=== PATIENT | male | born 1970 | race Caucasian/White ===

== ENCOUNTER 2016-12-30 19:00 | Inpatient (IN) | payer MEDICAID ==
[~2016-12-30] VITALS: Ht 157.5 cm; Wt 73.6 kg
[2016-12-30] MEDS ORDERED: PIPER-TAZO 3.375 GM IV (PMX) 100 ML IVPB STA (19:24)
[2016-12-30] MEDS ORDERED: SODIUM CHLORIDE 0.9% 1L BAG IV* STA (19:24)
[2016-12-30] MEDS ORDERED: VANCOMYCIN 1 GM (PMX) 250 ML IVPB ONE (19:30)
[2016-12-30] MEDS ORDERED: ACETAMINOPHEN 325 MG TAB PO ONE (19:30)
--- NOTE | 2016-12-30 19:52 | RADRPT ---
PROCEDURE: US Abdomen Limited . CLINICAL INDICATION: Abdominal pain TECHNIQUE: Multiple real-time images were acquired of the patient's right upper quadrant abdomen u tilizing a high resolution transducer. COMPARISON: None FINDINGS: The liver measures 18.9 cm and demonstrates a coarsened echogenicity. The gallbladder is filled with a moderate amount of bile. A moderate amount of echogenic sludge is identified in the gallbladder. No shadowing stones are seen. The gallbladder wall is not thickened at 2.0 mm. No pericholecystic fluid is noted. The common bile duct measures 5.0 mm in diameter. The pancreas is not well visualiz ed. Antegrade flow is seen in the portal vein. Right kidney measures 10.9 cm. Right kidney demonstrates a normal echogenicity. No hydronephrosis, masses or stones are noted. IMPRESSION: Diffuse fatty infiltration of a mildly enlarged liver. Gallbladder sludge. Pancreas not well visualized. If characterization of this structure is needed repeat exam or CT/MRI is recommended. RPTAT: AA .Aj Lockhart MD, Date Time Electronically viewed and signed by .Aj Lockhart MD, MD on 12/30/2016 19:51 .P/
[2016-12-30 20:08] LABS: ADD UMIC NO; UR ASCORBIC ACID NEGATIVE (NEGATIVE); UR BILIRUBIN (Dip) 2+ mg/dL (NEGATIVE); UR BLOOD (Dip) NEGATIVE (NEGATIVE); UR CLARITY CLEAR (CLEAR); UR COLOR AMBER (YELLOW); UR GLUCOSE (Dip) 3+ mg/dL (NEGATIVE); UR KETONES (Dip) NEGATIVE (NEGATIVE); UR LEUKOCYTE ESTERASE (Dip) NEGATIVE Leu/ul (NEGATIVE); UR NITRITE (Dip) NEGATIVE (NEGATIVE); UR SPECIFIC GRAVITY (Dip) 1.022 (1.003-1.030); UR TOTAL PROTEIN (Dip) NEGATIVE (NEGATIVE); UR UROBILINOGEN (Dip) 2+ mg/dL (NEGATIVE)
[2016-12-30 20:10] LABS: ABNORMAL IP MESSAGE 1; HEMATOCRIT 35.4 % (42.0-52.0); HEMOGLOBIN 13.1 g/dl (14.0-18.0); MEAN CORPUSCULAR HEMOGLOBIN 36.1 pg (29.0-33.0); MEAN CORPUSCULAR VOLUME 97.5 fl (82.0-101.0); MEAN PLATELET VOLUME 11.4 fl (7.4-10.4); PLATELET COUNT 75 10^3/UL (140-415); POSITIVE DIFF @See below; RED BLOOD COUNT 3.63 10^6/ul (4.70-6.10); RED CELL DISTRIBUTION WIDTH 12.7 % (11.5-14.5); WHITE BLOOD COUNT 10.7 10^3/ul (4.8-10.8)
--- NOTE | 2016-12-30 20:10 | RADRPT ---
PROCEDURE: Portable chest x-ray. CLINICAL INDICATION: 48-year-old male. Possible sepsis.. TECHNIQUE: Portable AP view of the chest. COMPARISON: None. FINDINGS: Cardiomediastinal contours are normal. Lungs are clear.. Negative for pleural effusion or pneumothorax.. No acute bony abnormality. IMPRESSION: Negative for evidence of acute chest process. Negative for an infiltrate. RPTAT: HCTS Physician Natalia Date Time Electronically viewed and signed by Ryan George Physician on 12/30/2016 20:10 CS/
[2016-12-30 20:23] LABS: ALANINE AMINOTRANSFERASE 80 IU/L (13-69); ALBUMIN 3.2 g/dl (3.3-4.9); ALBUMIN/GLOBULIN RATIO 0.91; ALKALINE PHOSPHATASE 314 IU/L (42-121); ANION GAP 17 (8-16); ASPARTATE AMINO TRANSFERASE 152 IU/L (15-46); BILIRUBIN,INDIRECT 2.1 mg/dl (0-1.1); BILIRUBIN,TOTAL 9.9 mg/dl (0.2-1.3); BLOOD UREA NITROGEN 8 mg/dl (7-20); CALCIUM 8.2 mg/dl (8.4-10.2); CARBON DIOXIDE 28 mmol/L (21-31); CHLORIDE 91 mmol/L (97-110); CREATININE 0.59 mg/dl (0.61-1.24); GLUCOSE 271 mg/dl (70-220); POTASSIUM 3.5 mmol/L (3.5-5.1); SODIUM 132 mmol/L (135-144); TOTAL PROTEIN 6.7 g/dl (6.1-8.1)
[2016-12-30 20:35] LABS: INR 1.29; PROTIME 16.2 Sec (12.2-14.2); PT RATIO 1.3
[2016-12-30 20:36] LABS: PARTIAL THROMBOPLASTIN TIME 35.1 Sec (25.0-35.0)
[2016-12-30 20:39] LABS: TROPONIN-I < 0.012 ng/ml (0.00-0.12)
[2016-12-30] MEDS ORDERED: ACETAMINOPHEN 325 MG TAB PO PRN ×2 (21:00→23:00)
[2016-12-30] MEDS ORDERED: ONDANSETRON 4 MG INJ IV PRN ×2 (21:00→23:00)
[2016-12-30 21:07] LABS: HAAIG REFLEX REFLEX FILED
[2016-12-30 21:20] LABS: EOSINOPHILS # 0.1 10^3/ul (0.0-0.5); LYMPHOCYTES # 0.9 10^3/ul (0.8-2.9); MONOCYTE # 1.9 10^3/ul (0.3-0.9); MONOCYTES % (M) 18 % (0-11); NEUTROPHIL # 7.7 10^3/ul (1.6-7.5)
[2016-12-30 22:02] LABS: HEPATITIS B CORE ANTIBODY NEGATIVE (NEGATIVE)
--- NOTE | 2016-12-30 22:02 | ERA ---
ER Documentation Chief Complaint Date/Time DATE: 12/30/16 TIME: 21:59 Chief Complaint Epigastric Pain when Burping HPI Patient is a 46-year-old male with no medical problems who presents with midepigastric pain. The patient has had hiccups since Tuesday. The patient cannot sleep. He admits to epigastric pain. The pain comes and goes. He said that he is not having any pain right now. He tried drinking sugar water. He denies cough or urinary symptoms. Upon review of old medical records this is the patient's first visit to the emergency department. He does not currently have a primary doctor. ROS All systems reviewed and are negative except as per history of present illness. Medications Home Meds No Active Prescriptions or Reported Meds Allergies Allergies: Coded Allergies: No Known Allergy (Unverified , 12/30/16) PMhx/Soc Medical and Surgical Hx: pt denies Medical Hx, pt denies Surgical Hx Hx Alcohol Use: Yes Hx Substance Use: No Hx Tobacco Use: No Smoking Status: Never smoker FmHx Family History: No diabetes Physical Exam Vitals Vital Signs Date Time Temp Pulse Resp B/P Pulse Ox O2 Delivery O2 Flow Rate FiO2 12/30/16 21:01 100.0 98 20 153/90 96 Room Air 12/30/16 19:45 Nasal Cannula 12/30/16 19:14 100.6 117 22 162/93 96 Physical Exam Const: Moderate distress Head: Atraumatic Eyes: Scleral icterus ENT: Normal External Ears, Nose and Mouth. Neck: Full range of motion..~ No meningismus. Resp: Clear to auscultation bilaterally Cardio: Regular rate and rhythm, no murmurs Abd: Soft, midepigastric tenderness to palpation Skin: scleral icterus and jaundice Back: No midline or flank tenderness Ext: No cyanosis, or edema Neur: Awake and alert Psych: Normal Mood and Affect Result Diagram: 12/30/16195612/30/161956 Results 24 hrs Laboratory Tests Test 12/30/16 19:51 12/30/16 19:57 Urine Color COLE Urine Clarity CLEAR Urine pH 7.0 Urine Specific [place] 1.022 Urine Ketones NEGATIVEmg/dL Urine Nitrite NEGATIVEmg/dL Urine Bilirubin 2+mg/dL Urine Urobilinogen 2+mg/dL Urine Leukocyte Esterase NEGATIVELeu/ul Urine Hemoglobin NEGATIVEmg/dL Urine Glucose 3+mg/dL Urine Total Protein NEGATIVEmg/dl White Blood Count 10.710^3/ul Red Blood Count 3.6310^6/ul Hemoglobin 13.1g/dl Hematocrit 35.4% Mean Corpuscular Volume 97.5fl Mean Corpuscular Hemoglobin 36.1pg Mean Corpuscular Hemoglobin Concent 37.0g/dl Red Cell Distribution Width 12.7% Platelet Count 7510^3/UL Mean Platelet Volume 11.4fl Neutrophils % % Segmented Neutrophils % (Manual) 72% Band Neutrophils % (Manual) 1% Lymphocytes % % Lymphocytes % (Manual) 8% Monocytes % % Monocytes % (Manual) 18% Eosinophils % % Eosinophils % (Manual) 1.0% Basophils % % Nucleated Red Blood Cells % 0.0/100WBC Neutrophils # 7.710^3/ul Neutrophils # (Manual) 7.710^3/ul Band Neutrophils # 0.110^3/ul Absolute Lymphocytes (Manual) 0.810^3/ul Lymphocytes # 0.910^3/ul Monocytes # 1.910^3/ul Absolute Monocytes (Manual) 1.910^3/ul Eosinophils # 0.110^3/ul Basophils # 10^3/ul Nucleated Red Blood Cells # 10^3/ul Prothrombin Time 16.2Sec Prothrombin Time Ratio 1.3 INR International Normalized Ratio 1.29 Activated Partial Thromboplast Time 35.1Sec Sodium Level 132mmol/L Potassium Level 3.5mmol/L Chloride Level 91mmol/L Carbon Dioxide Level 28mmol/L Anion Gap 17 Blood Urea Nitrogen 8mg/dl Creatinine 0.59mg/dl Glucose Level 271mg/dl Lactic Acid Level 1.2mmol/L Calcium Level 8.2mg/dl Total Bilirubin 9.9mg/dl Direct Bilirubin 7.80mg/dl Indirect Bilirubin 2.1mg/dl Aspartate Amino Transf (AST/SGOT) 152IU/L Alanine Aminotransferase (ALT/SGPT) 80IU/L Alkaline Phosphatase 314IU/L Troponin I < 0.012ng/ml Total Protein 6.7g/dl Albumin 3.2g/dl Globulin 3.50g/dl Albumin/Globulin Ratio 0.91 Lipase 1221U/L Hepatitis B Surface Antigen Pending Hepatitis B Core Total Antibody Pending Hepatitis C Antibody Pending Current Medications Medications (Trade) Dose Ordered Sig/Gary Route PRN Reason Start Time Stop Time Status Last Admin Dose Admin Sodium Chloride 2280 ml 2,280 ml BOLUS OVER 2 HOURS STAT IV* 12/30/16 19:24 12/30/16 19:26 DC 12/30/16 19:41 Vancomycin HCl 250 ml @ 125 mls/hr ONCE ONCE IVPB 12/30/16 19:30 12/30/16 21:29 DC 12/30/16 21:01 Piperacillin Sod/ Tazobactam Sod (Zosyn 3.375gm/ 100 ml (Pmx)) 100 ml @ 200 mls/hr ONCE STAT IVPB 12/30/16 19:24 12/30/16 19:53 DC 12/30/16 19:41 Acetaminophen (Tylenol Tab) 650 mg ONCE ONCE PO 12/30/16 19:30 12/30/16 19:31 DC 12/30/16 19:41 Ondansetron HCl (Zofran Inj) 4 mg BRIDGE ORDER PRN IV NAUSEA AND/OR VOMITING 12/30/16 21:00 12/31/16 20:59 Acetaminophen (Tylenol Tab) 650 mg ER BRIDGE PRN PO MILD PAIN/FEVER 12/30/16 21:00 12/31/16 20:59 Procedures/MDM EKG read by me: Rate/Rhythm: Sinus tachycardia rate of 123 Intervals: Normal Impression: Sinus tachycardia without ischemia PROCEDURE: US Abdomen Limited . CLINICAL INDICATION: Abdominal pain TECHNIQUE: Multiple real-time images were acquired of the patient's right upper quadrant abdomen utilizing a high resolution transducer. COMPARISON: None FINDINGS: The liver measures 18.9 cm and demonstrates a coarsened echogenicity. The gallbladder is filled with a moderate amount of bile. A moderate amount of echogenic sludge is identified in the gallbladder. No shadowing stones are seen. The gallbladder wall is not thickened at 2.0 mm. No pericholecystic fluid is noted. The common bile duct measures 5.0 mm in diameter. The pancreas is not well visualized. Antegrade flow is seen in the portal vein. Right kidney measures 10.9 cm. Right kidney demonstrates a normal echogenicity. No hydronephrosis, masses or stones are noted. IMPRESSION: Diffuse fatty infiltration of a mildly enlarged liver. Gallbladder sludge. Pancreas not well visualized. If characterization of this structure is needed repeat exam or CT/MRI is recommended. RPTAT: AA .Aj Lockhart MD, MD Date Time Electronically viewed and signed by .Aj Lockhart MD, MD on 12/30/2016 19:51 Chest x-ray negative per radiology. Admit MDM: Patient's infectious symptoms have not stabilized and the patient is at risk of rapid decompensation. The patient will be admitted for careful hydration, antibiotic therapy, and infectious source control. Severe Sepsis criteria: Infectious source: Hepatitis and pancreatitis End organ damage indicated by: Bilirubin greater than 2 Sepsis Management: Time of recognition of sepsis: Upon arrival Within 3 hours of recognition: Blood cultures x 2 before broad-spectrum antibiotics: Yes 30 ml/kg NS bolus Completed Initial lactate 1.2 Repeat lactate pending Time of recognition of septic shock: No septic shock Septic Shock Assessment: Any lactic acid > 4.0 No Persistent hypotension (SBP < 90 or 40 mmHg drop, MAP < 65) despite 30 mL/kg IV fluid bolus No Volume Re-assessment for Septic Shock (post 30 ml/kg bolus): No septic shock at this time Persistent Hypotension Treatment: Comfort care No Central line Not Required Vasopressor started Not required I considered further perfusion assessment with CVP measurement, SCVO2, bedside ultrasound volume assessment, passive leg raise, trial of further fluid bolus. And proceeded with 30 ml/kg fluid bolus of NSS, broad spectrum antibiotics, and admission. Hepatitis panel is pending at this time. Accepting Care Team Current data and ongoing care discussed. Admitting Physician: Dr. Raman from the panel team Clerk Television Production(s): None Outstanding Data: Culture results and repeat lactic acid Critical Care: Critical care time 35 minutes excluding all billable procedures Emergent fluid management while maintaining close respiratory support. Provision of immediate and broad-spectrum antibiotic therapy. Simultaneous assessment for possible sources in order to direct targeted therapy. Consideration for invasive and chemical support to prevent cardiopulmonary collapse. Departure Diagnosis: Primary Impression: Hepatitis Additional Impressions: Pancreatitis Qualified Code: K85.90 - Acute pancreatitis, unspecified complication status, unspecified pancreatitis type Severe sepsis Abdominal pain Qualified Code: R10.13 - Epigastric pain Condition: Serious FELIPE GALLARDO MD Dec 30, 2016 22:02
[2016-12-30] MEDS ORDERED: LORAZEPAM 2 MG INJ IV PRN (23:00)
[2016-12-30] MEDS ORDERED: morphine 2 MG INJ IV PRN (23:00)
[2016-12-30] MEDS ORDERED: NACL 0.9% 3 ML SYG IV SCH (23:00)
--- NOTE | 2016-12-30 23:17 | RADRPT ---
PROCEDURE: CT ABDOMEN AND PELVIS WITHOUT CONTRAST: CLINICAL INDICATION: 46-year of age, male, epigastric pain COMPARISON: Ultrasound from earlier the same day TECHNIQUE: CT of the abdomen, and pelvis was performed without intravenous contrast. Oral contrast w as not administered prior to the examination. Coronal and sagittal reformatted images were obtained from the axial source images. Images were revi ewed on a high-resolution PACS workstation. Dose information: Based on a 32 cm phantom, the estimated radiation dose (CTDI vol mGy) for each ser ies in this exam is 11.8. The estimated cumulative dose (DLP mGy-cm) is 685. FINDINGS: In the absence of intravenous contrast, the study constitutes a limited assessment of the solid orga ns and vessels. LUNG BASES: Normal. ABDOMEN/PELVIS: Liver: Marked hepatic steatosis and moderate hepatomegaly measuring 21 cm in length. Scattered liver granulomas. Gallbladder: Moderately distended. Bile ducts: No intrahepatic or extrahepatic biliary duct dilatation. Spleen: Normal size. Trace perisplenic fluid. Pancreas: Enlarged with extensive peripancreatic edema and fluid extending into the small bowel mese ntery and gastrohepatic ligament. Adrenal glands: Normal. Kidneys and ureters: Punctate nonobstructing calculus right kidney. Negative for ureteral calculi o r hydronephrosis. Aorta and IVC: Normal noncontrast appearance. Lymph nodes: Normal. Gastrointestinal tract: Suspected wall thickening involving proximal jejunum in the left upper quadr ant adjacent to the inflamed pancreas. Bowel loops are decompressed. Appendix: Normal Bladder: Normal. Pelvic Organs: Normal. Peritoneal cavity: Small volume free intraperitoneal fluid. Negative for free intraperitoneal air. Abdominal wall: Indirect left inguinal hernia containing peritoneal fluid. There is a calcified lef t scrotal yissel. BONES: Musculoskeletal: Multilevel degenerative changes in spine with curvature of lumbar spine convex righ t. Bilateral spondylolysis at L4 with grade 1 anterolisthesis at L4-5. No suspicious bone lesions. IMPRESSION: Acute pancreatitis with enlarged edematous pancreas with acute peripancreatic collections forming in the gastrohepatic ligament and small bowel mesentery. Without intravenous contrast, the study does not evaluate for pancreatic necrosis and also does not evaluate the patency of the vasculature. Suspected wall thickening of proximal loops of jejunum is likely reactive from adjacent pancreatitis . Marked hepatic steatosis and moderate hepatomegaly. Small volume ascites. RPTAT: HCTS Ryan George, Physician Date Time Electronically viewed and signed by Ryan George, Physician on 12/30/2016 23:17 CS/
--- NOTE | 2016-12-30 23:32 | HP ---
Date/Time of Note Date/Time of Note DATE: 12/30/16 TIME: 23:31 Assessment/Plan VTE Prophylaxis VTE Prophylaxis Intervention: SCD's Assessment/Plan Chief Complaint/Hosp Course This is a 46-year-old male being admitted to the [facility] floor for: #1 Sepsis: Patient did present with fever tachycardia and tachypnea and acute pancreatitis. At the current time will provide patient with IV fluid hydration. Keep patient n.p.o. She did receive an initial dose of antibiotics in the emergency department. CAT scan of the abdomen showed: Acute pancreatitis with enlarged edematous pancreas with acute peripancreatic collections forming in the gastrohepatic ligament and small bowel mesentery. Without intravenous contrast, the study does not evaluate for pancreatic necrosis and also does not evaluate the patency of the vasculature. I will order a CAT scan with contrast to further evaluate. Will treat for any infections accordingly with antibiotics. Will obtain urine and blood cultures. #2 acute pancreatitis: Likely secondary to heavy alcohol use. Will obtain blood alcohol level. Keep the patient n.p.o., IV fluid aggressive hydration. IV narcotic for pain control. Will obtain a CAT scan of the ultrasound with contrast to further assess for any possible necrosis. #3 Painless jaundice: Total bilirubin 9.9 with direct bilirubin of 7.8. Transaminitis. There are no signs of any gallstones on ultrasound. The gallbladder wall appears normal size. At the current time this likely appears to be secondary to patient's heavy alcohol use however this also could reflect possible acute cholangitis though there is no elevation in the white count. So the current time I will start the patient on Zosyn IV. Will obtain an MRCP. Will also obtain a GI consult. Will check hepatitis panel, additional liver studies. #4 alcohol abuse: Patient is a heavy daily drinker. He was counseled on alcohol cessation. At the current time will check blood alcohol level. Will put the patient on Ativan as needed, scheduled Librium taper. Keep the patient n.p.o. Monitor for signs of alcohol withdrawal. #5 elevated blood glucose: We will check a hemoglobin A1c. We will keep the patient on insulin sliding scale. #6 elevated blood pressure: Continue to monitor blood pressures, patient may have undiagnosed hypertension. Start medications as indicated clinically. #7 DVT and GI prophylaxis: SCDs, acid german Further treatment strategy will be implemented as per the clinical course Problems: HPI/ROS Admit Date/Time Admit Date/Time Hx of Present Illness Chief complaint: Midepigastric pain This is a 46-year-old male with no medical problems who presents with midepigastric pain. The patient has had hiccups since Tuesday. The patient cannot sleep. He admits to epigastric pain. The pain comes and goes. He said that he is not having any pain right now. He denies cough or urinary symptoms. Patient states that he is a daily heavy alcohol drinker. He states that he noticed his eyes were yellow today. Denies any swelling in his legs or distention his abdomen. He does not have a primary care doctor. He states that he does have hiccups but he denies any symptoms of reflux such as heartburn. allergies: nkda meds: none ROS Const: As per HPI Eyes : As per HPI ENT: No pain, sore throat, congestion, congestion, dysphagia or discharge Respiratory: No shortness of breath, cough, sputum, wheezing, or pleuritic pain Cardiovascular: No chest pain, palpitation, PND, or edema GI : As per HPI Genitourinary: No dysuria, hematuria, flank pain , discharge or CVA tenderness Musculoskeletal: No joint pain, back pain, neck pain, restricted range of motion in neck or joints Skin: No rash, bruising or hives Neuro: No headache, dizziness, syncope, seizure, focal weakness Endocrine: No polyuria, polydipsia, temperature intolerance Psych: No hallucination, depression, anxiety or suicidal ideation PMH/Family/Social Past Medical History anxiety Past Surgical History Past Surgical Hx: no surgical history Family History Significant Family History: no pertinent family hx Social History Alcohol Use: heavy Smoking Status: Never smoker Drug Use: none Exam/Review of Systems Vital Signs Vitals Vital Signs Date Time Temp Pulse Resp B/P Pulse Ox O2 Delivery O2 Flow Rate FiO2 12/30/16 22:50 99.8 98 18 143/86 98 Nasal Cannula 2.0 Exam Exam General: Patient is lying in bed in no acute distress HEENT: Scleral icterus bilaterally, atraumatic, normocephalic. The pupils are equal, round and reactive. Extraocular motor are intact Neck: Supple with full range of motion. No rigidity or meningismus Chest: Nontender Lungs: Clear to auscultation bilaterally no crackles rales or wheezing Heart: Normal S1-S2, Regular rhythm and rate. No murmur, S3, or S4 Abdomen: Soft, nontender, nondistended, no fluid wave, no overt signs of ascites. Hepatomegaly on examination Extremities: Normal to inspection, no edema no cyanosis Neurologic: Normal mental status, speech normal, cranial nerves II through XII are intact, motor and sensory are intact, no focal weakness, no signs of DTs. Additional Comments PROCEDURE: CT ABDOMEN AND PELVIS WITHOUT CONTRAST: CLINICAL INDICATION: 46-year of age, male, epigastric pain COMPARISON: Ultrasound from earlier the same day TECHNIQUE: CT of the abdomen, and pelvis was performed without intravenous contrast. Oral contrast was not administered prior to the examination. Coronal and sagittal reformatted images were obtained from the axial source images. Images were reviewed on a high-resolution PACS workstation. Dose information: Based on a 32 cm phantom, the estimated radiation dose (CTDI vol mGy) for each series in this exam is 11.8. The estimated cumulative dose ( DLP mGy-cm) is 685. FINDINGS: In the absence of intravenous contrast, the study constitutes a limited assessment of the solid organs and vessels. LUNG BASES: Normal. ABDOMEN/PELVIS: Liver: Marked hepatic steatosis and moderate hepatomegaly measuring 21 cm in length. Scattered liver granulomas. Gallbladder: Moderately distended. Bile ducts: No intrahepatic or extrahepatic biliary duct dilatation. Spleen: Normal size. Trace perisplenic fluid. Pancreas: Enlarged with extensive peripancreatic edema and fluid extending into the small bowel mesentery and gastrohepatic ligament. Adrenal glands: Normal. Kidneys and ureters: Punctate nonobstructing calculus right kidney. Negative for ureteral calculi or hydronephrosis. Aorta and IVC: Normal noncontrast appearance. Lymph nodes: Normal. Gastrointestinal tract: Suspected wall thickening involving proximal jejunum in the left upper quadrant adjacent to the inflamed pancreas. Bowel loops are decompressed. Appendix: Normal Bladder: Normal. Pelvic Organs: Normal. Peritoneal cavity: Small volume free intraperitoneal fluid. Negative for free intraperitoneal air. Abdominal wall: Indirect left inguinal hernia containing peritoneal fluid. There is a calcified left scrotal yissel. BONES: Musculoskeletal: Multilevel degenerative changes in spine with curvature of lumbar spine convex right. Bilateral spondylolysis at L4 with grade 1 anterolisthesis at L4-5. No suspicious bone lesions. IMPRESSION: Acute pancreatitis with enlarged edematous pancreas with acute peripancreatic collections forming in the gastrohepatic ligament and small bowel mesentery. Without intravenous contrast, the study does not evaluate for pancreatic necrosis and also does not evaluate the patency of the vasculature. Suspected wall thickening of proximal loops of jejunum is likely reactive from adjacent pancreatitis. Marked hepatic steatosis and moderate hepatomegaly. Small volume ascites. RPTAT: HCTS Physician Natalia Date Time Electronically viewed and signed by Ryan George Physician on 12/30/2016 23: 17 CS/ CC: FELIPE GALLARDO MD PROCEDURE: US Abdomen Limited . CLINICAL INDICATION: Abdominal pain TECHNIQUE: Multiple real-time images were acquired of the patient's right upper quadrant abdomen utilizing a high resolution transducer. COMPARISON: None FINDINGS: The liver measures 18.9 cm and demonstrates a coarsened echogenicity. The gallbladder is filled with a moderate amount of bile. A moderate amount of echogenic sludge is identified in the gallbladder. No shadowing stones are seen. The gallbladder wall is not thickened at 2.0 mm. No pericholecystic fluid is noted. The common bile duct measures 5.0 mm in diameter. The pancreas is not well visualized. Antegrade flow is seen in the portal vein. Right kidney measures 10.9 cm. Right kidney demonstrates a normal echogenicity. No hydronephrosis, masses or stones are noted. IMPRESSION: Diffuse fatty infiltration of a mildly enlarged liver. Gallbladder sludge. Pancreas not well visualized. If characterization of this structure is needed repeat exam or CT/MRI is recommended. RPTAT: AA .Aj Lockhart MD, Date Time Electronically viewed and signed by .Aj Lockhart MD, MD on 12/30/2016 19:51 .P/ PROCEDURE: Portable chest x-ray. CLINICAL INDICATION: 48-year-old male. Possible sepsis.. TECHNIQUE: Portable AP view of the chest. COMPARISON: None. FINDINGS: Cardiomediastinal contours are normal. Lungs are clear.. Negative for pleural effusion or pneumothorax.. No acute bony abnormality. IMPRESSION: Negative for evidence of acute chest process. Negative for an infiltrate. RPTAT: HCTS Physician Natalia Date Time Electronically viewed and signed by Ryan George Physician on 12/30/2016 20: 10 CS/ CC: FELIPE GALLARDO MD Labs Result Diagram: 12/30/16195612/30/161956 Medications Medications Current Medications Sodium Chloride (NS) 1,000 ml @ 150 mls/hr Q6H40M IV ; Start 12/30/16 at 22:54 Ondansetron HCl (Zofran Inj) 4 mg Q6H PRN IV NAUSEA AND/OR VOMITING; Start 03/08 at 23:00 Acetaminophen (Tylenol Tab) 650 mg Q6H PRN PO PAIN LEVEL 1-3 OR FEVER; Start at 23:00 Morphine Sulfate (morphine) 2 mg Q4H PRN IV SEVERE PAIN LEVEL 7-10; Start 12/30 at 23:00 Pantoprazole (Protonix Iv) 40 mg DAILY@06 IV ; Start 12/31/16 at 06:00 Lorazepam (Ativan) 1 mg Q2 PRN IV AGITATION/ANXIETY; Start 12/30/16 at 23:00 Chlordiazepoxide (Librium) 50 mg TID PO ; Start 12/30/16 at 23:00; Stop at 22:59 Chlordiazepoxide (Librium) 25 mg QID PO ; Start 01/01/17 at 09:00; Stop at 22:59 Chlordiazepoxide (Librium) 25 mg TID PO ; Start 01/02/17 at 09:00; Stop at 22:59 LESTER PEARSON Dec 30, 2016 23:32
[2016-12-30] MEDS ORDERED: IOHEXOL 300MG/ML 150 ML BTL ONE (23:56)
[2016-12-30] MEDS ORDERED: SOD CHLORIDE 0.9% 100 ML ONE (23:56)
[2016-12-31] MEDS: SOD CHLORIDE 0.9% 1,000 ML IV SCH ×4 (00:38→18:54)
--- NOTE | 2016-12-31 00:44 | RADRPT ---
PROCEDURE: CT Abdomen and Pelvis with IV contrast. CLINICAL INDICATION: Pancreatitis. Pain. TECHNIQUE: CT scan of the abdomen and pelvis was performed on a multidetector slice CT scanner. 90 cc of Omnipaque 300 intravenous contrast material was utilized. Sagittal and coronal reformatted im ages were obtained from the axial source images. Images were reviewed on a high-resolution PACS work station. Exam CTDlvol = 10 mGy and DLP = 572 Gy-cm. One of the following 3 dose reduction techniques were used: Automated exposure control; adjustment of the mA and/or kV according to patient size; or use of iterative reconstruction technique. COMPARISON: Non IV contrast CT 12/30/2016. FINDINGS: There is redemonstrated edematous pancreas with diffuse peripancreatic fluid and infiltration, consi stent with acute pancreatitis. There is no gross destruction of the pancreatic parenchyma to sugges t necrosis. There is no pseudocyst or phlegmon. The adjacent arterial and venous structures appear patent without evidence for thrombosis. There is thickening of the adjacent gastric antrum and duo denum consistent with reactive changes. There is mild free fluid in the abdomen and pelvis, unchang ed. The liver is enlarged at 21.5 cm length and diffusely hypodense/fatty.. No intrahepatic lesions are identified. The gallbladder is normal in appearance. There is no definite biliary ductal dilation. The spleen is unremarkable.. There are no adrenal masses. The aorta is normal caliber. There is no obstruction or ileus. There is mild distal transverse and left colon wall thickening. Th ere is a fluid-containing left inguinal hernia, unchanged. The appendix is visualized and normal in size and appearance without evidence for appendicitis. There is no evidence for diverticulitis. There is a punctate nonobstructing calcification lower pole right kidney. Kidneys are otherwise nor mal in appearance without hydronephrosis, mass or obstructing calculus. There is no perinephric letitia ection. Ureters are of normal caliber and without evidence for an obstructing calculus The urinary b ladder is normal in appearance.. Limited evaluation lung bases is unremarkable. There are degenerative changes of the lower lumbar spine. There is 4 mm grade 1 anterior spondyloli sthesis of L4 on L5. IMPRESSION: 1. Redemonstrated acute pancreatitis with peripancreatic fluid and infiltration. No definite pancr eatic destruction to suggest necrosis. No armani pancreatic pseudocyst or phlegmon. 2. Thickening of the gastric antrum, duodenum as well as the distal transverse and left colon, like ly reactive changes. 3. Unchanged mild ascites. 4. Enlarged fatty liver. 5. Otherwise no change. RPTAT: [facility]VK .David Mejía MD, Date Time Electronically viewed and signed by .David Mejía MD, on 12/31/2016 00:44 .K/
[2016-12-31] MEDS: CHLORDIAZEPOXIDE 25 MG CAP PO SCH ×4 (00:52→21:07)
[2016-12-31] MEDS ORDERED: DEXTROSE 50% 50 ML SYRINGE IV PRN ×2 (01:00)
[2016-12-31] MEDS ORDERED: GLUCOSE GEL 15 GRAM TUBE BUCCAL PRN (01:00)
[2016-12-31] MEDS ORDERED: GLUCAGON 1 MG INJ IM PRN (01:00)
[2016-12-31] MEDS ORDERED: GLUCOSE GEL 15 GRAM TUBE PO PRN ×2 (01:00)
[2016-12-31] MEDS: ACCU-CHEK XX SCH (02:00)
[2016-12-31] MEDS: INSULIN ASPART [NOVOLOG] 3 ML PEN SC SCH ×6 (02:27→21:15)
[2016-12-31 04:30] VITALS: TEMP 99.8
[2016-12-31 05:27] VITALS: Ht 157.5 cm; Wt 73.6 kg
[2016-12-31 05:38] VITALS: BP 153/82; PULSE 90; RESP 18
[2016-12-31] MEDS ORDERED: PANTOPRAZOLE 40 MG INJ IV SCH (06:00)
[2016-12-31] MEDS: PIPER-TAZO 3.375 GM IV (PMX) 100 ML IVPB SCH ×4 (06:03→23:15)
[2016-12-31 06:39] LABS: ABNORMAL IP MESSAGE 1; BASOPHILS % 0.4 % (0.0-2.0); EOSINOPHILS # 0.2 10^3/ul (0.0-0.5); EOSINOPHILS % 2.2 % (0.0-7.0); HEMATOCRIT 36.6 % (42.0-52.0); HEMOGLOBIN 12.7 g/dl (14.0-18.0); LYMPHOCYTES # 1.1 10^3/ul (0.8-2.9); LYMPHOCYTES % 12.3 % (15.0-51.0); MEAN CORPUSCULAR HEMOGLOBIN 34.8 pg (29.0-33.0); MEAN CORPUSCULAR HGB CONC 34.7 g/dl (32.0-37.0); MEAN CORPUSCULAR VOLUME 100.3 fl (82.0-101.0); MEAN PLATELET VOLUME 11.2 fl (7.4-10.4); MONOCYTE # 2.8 10^3/ul (0.3-0.9); MONOCYTES % 30.3 % (0.0-11.0); NEUTROPHIL # 4.9 10^3/ul (1.6-7.5); NEUTROPHILS % 53.4 % (39.0-77.0); PLATELET COUNT 74 10^3/UL (140-415); POSITIVE DIFF @See below; RED BLOOD COUNT 3.65 10^6/ul (4.70-6.10); RED CELL DISTRIBUTION WIDTH 13.1 % (11.5-14.5); WHITE BLOOD COUNT 9.2 10^3/ul (4.8-10.8)
[2016-12-31 07:11] LABS: ALBUMIN 2.7 g/dl (3.3-4.9); ALBUMIN/GLOBULIN RATIO 0.72; BILIRUBIN,DIRECT 6.5 mg/dl (0.00-0.20); BILIRUBIN,INDIRECT 1.8 mg/dl (0-1.1); BILIRUBIN,TOTAL 8.3 mg/dl (0.2-1.3); CALCIUM 7.6 mg/dl (8.4-10.2); CHOL/HDL RATIO 10.7 RATIO; CREATININE 0.55 mg/dl (0.61-1.24); MAGNESIUM 1.8 mg/dl (1.7-2.5); POTASSIUM 3.3 mmol/L (3.5-5.1); TOTAL PROTEIN 6.4 g/dl (6.1-8.1)
[2016-12-31 07:40] LABS: THYROID STIMULATING HORMONE 1.11 MIU/L (0.465-4.680)
--- NOTE | 2016-12-31 09:34 | PN ---
Date/Time of Note Date/Time of Note DATE: 12/31/16 TIME: 09:26 Assessment/Plan VTE Prophylaxis VTE Prophylaxis Intervention: heparin Assessment/Plan Chief Complaint/Hosp Course 46 yo male with etoh use disorder who presents with hepatitis and pancreatitis Hepatitis and pancreatitis - Almost certainly alcohol induced by history - No evidence of gall stone on imaging, no colic - Continue aggressive hydration for pancreatitis - Will check acute hepatitis labs and trend LFTs - DF is 26, does not meet criteria for steroids Fever I suspect is 2/2 inflammation rather than bacterial infection - Will dc abx if cultures remain negative by tomorrow Thrombocytopenia I suspect is 2/2 alcohol BM suppression, no evidence of cirrhosis/splenomegaly/portal hypertension on imaging DMII: - As evidenced by A1C 10 - Will start basal/bolus insulin Hypokalemia: - Replete as needed Etoh use disorder: - Cessation counseled/advised - Monitor for s/s of withdrawal. Benzos PRN Discharge to self care when stable Problems: Subjective 24 Hr Interval Summary Free Text/Dictation Pt describes daily heavy etoh consumption for years until this past weekend when abdominal symptoms and jaundice began No previous history of hepatitis, pancreatitis or complications of alcohol Feels comfortable now, wants to eat. Most bothersome symptom is hiccups Exam/Review of Systems Vital Signs Vitals Vital Signs Date Time Temp Pulse Resp B/P Pulse Ox O2 Delivery O2 Flow Rate FiO2 12/31/16 05:38 99.3 90 18 153/82 96 Room Air 12/31/16 04:30 2.0 12/31/16 03:00 28 Intake and Output 12/30/16 12/30/16 12/31/16 15:00 23:00 07:00 Intake Total 2630 ml Output Total 4000 ml Balance 2630 ml -4000 ml Exam Jaundiced Comfortable appearing no signs of etoh w/d Normal mentation, no signs of HE Tachy, regular Abdomen soft, nt, nd, no guarding or rebound No ext edema Labs notable for down trending hyperbilirubinemia, INR 1.3 Tranaminitis 2:1 ratio Thromobcytopenia Results Result Diagram: 12/31/16 0601 12/31/16 06 Results 24 hrs Laboratory Tests Test 12/30/16 19:51 12/30/16 19:57 12/30/16 23:18 12/31/16 02:00 Urine Color COLE Urine Clarity CLEAR Urine pH 7.0 Urine Specific [place] 1.022 Urine Ketones NEGATIVE Urine Nitrite NEGATIVE Urine Bilirubin 2+ H Urine Urobilinogen 2+ H Urine Leukocyte Esterase NEGATIVE Urine Hemoglobin NEGATIVE Urine Glucose 3+ H Urine Total Protein NEGATIVE White Blood Count 10.7 Red Blood Count 3.63 L Hemoglobin 13.1 L Hematocrit 35.4 L Mean Corpuscular Volume 97.5 Mean Corpuscular Hemoglobin 36.1 H Mean Corpuscular Hemoglobin Concent 37.0 Red Cell Distribution Width 12.7 Platelet Count 75 L Mean Platelet Volume 11.4 H Neutrophils % Segmented Neutrophils % (Manual) 72 Band Neutrophils % (Manual) 1 Lymphocytes % Lymphocytes % (Manual) 8 L Monocytes % Monocytes % (Manual) 18 H Eosinophils % Eosinophils % (Manual) 1.0 Basophils % Nucleated Red Blood Cells % 0.0 Neutrophils # 7.7 H Neutrophils # (Manual) 7.7 H Band Neutrophils # 0.1 Absolute Lymphocytes (Manual) 0.8 Lymphocytes # 0.9 Monocytes # 1.9 H Absolute Monocytes (Manual) 1.9 H Eosinophils # 0.1 Basophils # Nucleated Red Blood Cells # Prothrombin Time 16.2 H Prothrombin Time Ratio 1.3 INR International Normalized Ratio 1.29 Activated Partial Thromboplast Time 35.1 H Sodium Level 132 L Potassium Level 3.5 Chloride Level 91 L Carbon Dioxide Level 28 Anion Gap 17 H Blood Urea Nitrogen 8 Creatinine 0.59 L Glucose Level 271 H Lactic Acid Level 1.2 1.0 0.9 Calcium Level 8.2 L Total Bilirubin 9.9 H Direct Bilirubin 7.80 H Indirect Bilirubin 2.1 H Aspartate Amino Transf (AST/SGOT) 152 H Alanine Aminotransferase (ALT/SGPT) 80 H Alkaline Phosphatase 314 H Troponin I < 0.012 Total Protein 6.7 Albumin 3.2 L Globulin 3.50 H Albumin/Globulin Ratio 0.91 Lipase 1221 H Hepatitis B Surface Antigen NEGATIVE Hepatitis B Core Total Antibody NEGATIVE Hepatitis C Antibody NEGATIVE Ethyl Alcohol Level < 10.0 Test 12/31/16 02:09 12/31/16 05:55 12/31/16 06:01 Bedside Glucose 182 163 White Blood Count 9.2 Red Blood Count 3.65 L Hemoglobin 12.7 L Hematocrit 36.6 L Mean Corpuscular Volume 100.3 Mean Corpuscular Hemoglobin 34.8 H Mean Corpuscular Hemoglobin Concent 34.7 Red Cell Distribution Width 13.1 Platelet Count 74 L Mean Platelet Volume 11.2 H Neutrophils % 53.4 Lymphocytes % 12.3 L Monocytes % 30.3 H Eosinophils % 2.2 Basophils % 0.4 Nucleated Red Blood Cells % 0.0 Neutrophils # 4.9 Lymphocytes # 1.1 Monocytes # 2.8 H Eosinophils # 0.2 Basophils # 0.0 Nucleated Red Blood Cells # 0.0 Sodium Level 138 Potassium Level 3.3 L Chloride Level 96 L Carbon Dioxide Level 29 Anion Gap 16 Blood Urea Nitrogen 5 L Creatinine 0.55 L Glucose Level 155 # Hemoglobin A1c 10.0 H Calcium Level 7.6 L Magnesium Level 1.8 Total Bilirubin 8.3 H Direct Bilirubin 6.50 H Indirect Bilirubin 1.8 H Aspartate Amino Transf (AST/SGOT) 138 H Alanine Aminotransferase (ALT/SGPT) 72 H Alkaline Phosphatase 267 H Total Protein 6.4 Albumin 2.7 L Globulin 3.70 H Albumin/Globulin Ratio 0.72 Triglycerides Level 231 H Cholesterol Level 140 LDL Cholesterol, Calculated 81 HDL Cholesterol 13 L Cholesterol/HDL Ratio 10.7 Thyroid Stimulating Hormone (TSH) 1.110 Medications Medications Current Medications Sodium Chloride (NS) 1,000 ml @ 150 mls/hr Q6H40M IV Last administered on 12/31 05:58; Admin Dose 150 MLS/HR; Start 12/30/16 at 22:54 Ondansetron HCl (Zofran Inj) 4 mg Q6H PRN IV NAUSEA AND/OR VOMITING; Start 03/08 at 23:00 Acetaminophen (Tylenol Tab) 650 mg Q6H PRN PO PAIN LEVEL 1-3 OR FEVER; Start at 23:00 Morphine Sulfate (morphine) 2 mg Q4H PRN IV SEVERE PAIN LEVEL 7-10; Start 12/30 at 23:00 Lorazepam (Ativan) 1 mg Q2 PRN IV AGITATION/ANXIETY; Start 12/30/16 at 23:00 Chlordiazepoxide (Librium) 50 mg TID PO Last administered on 12/31/16 00:52; Admin Dose 50 MG; Start 12/30/16 at 23:00; Stop 12/31/16 at 22:59 Chlordiazepoxide (Librium) 25 mg QID PO ; Start 01/01/17 at 09:00; Stop at 22:59 Chlordiazepoxide (Librium) 25 mg TID PO ; Start 01/02/17 at 09:00; Stop at 22:59 Diagnostic Test (Pha) (Accu-Chek) 1 ea 02 XX ; Start 12/31/16 at 02:00 Insulin Aspart (Novolog Insulin Pen) NOVOLOG *MILD* ALGORI... Q4 SC Last administered on 12/31/16 06:00; Admin Dose 1 UNIT; Start 12/31/16 at 01:00 Miscellaneous Information 1 ea NOTE XX ; Start 12/31/16 at 01:00 Glucose (Glutose) 15 gm Q15M PRN PO DECREASED GLUCOSE; Start 12/31/16 at 01:00 Glucose (Glutose) 22.5 gm Q15M PRN PO DECREASED GLUCOSE; Start 12/31/16 at 01: 00 Dextrose (D50w Syringe) 25 ml Q15M PRN IV DECREASED GLUCOSE; Start 12/31/16 at 01:00 Dextrose (D50w Syringe) 50 ml Q15M PRN IV DECREASED GLUCOSE; Start 12/31/16 at 01:00 Glucagon (Glucagen) 1 mg Q15M PRN IM DECREASED GLUCOSE; Start 12/31/16 at 01:00 Glucose 15 gm 15 gm Q15M PRN BUCCAL DECREASED GLUCOSE; Start 12/31/16 at 01:00 Piperacillin Sod/ Tazobactam Sod (Zosyn 3.375gm/ 100 ml (Pmx)) 100 ml @ 200 mls /hr Q6 IVPB Last administered on 12/31/16t 06:03; Admin Dose 200 MLS/HR; Start 12/31/16 at 06:00 Famotidine (Pepcid Iv) 20 mg BID IV ; Start 01/01/17 at 09:00 CHAPIS MOODY MD Dec 31, 2016 09:34
[2016-12-31] MEDS ORDERED: POTASSIUM CHLORIDE (SR) 20 MEQ TAB PO STA ×2 (09:35→15:47)
--- NOTE | 2016-12-31 10:57 | PN ---
Date/Time of Note Date/Time of Note DATE: 12/31/16 TIME: 10:39 Assessment/Plan VTE Prophylaxis VTE Prophylaxis Intervention: ambulation Assessment/Plan Assessment/Plan Assessment * Jaundice LIkely alcoholic in origin vs infectious vs others * Alcoholism * Elevated lipase Acute Pancreatitis CT scan . Redemonstrated acute pancreatitis with peripancreatic fluid and infiltration. No definite pancreatic destruction to suggest necrosis. No armani pancreatic pseudocyst or phlegmon. Thickening of the gastric antrum, duodenum as well as the distal transverse and left colon, likely reactive changes. Unchanged mild ascites. . Enlarged fatty liver. Plan * Continue present management * Will await hepatitis profile results * MRCP results * Alcohol cessation is paramount * Case discussed with DR Mckeon * further orders will depend on clinical course Subjective 24 Hr Interval Summary Free Text/Dictation 46 year old male heavy alcoholic drinker presented to emergency room complaining of hiccups and icteric sclera.Present condition apparently started as heavy drinking last week followed by vague epigastric pain,non radiating, occurring intermittently with associated hiccups.Patient denies any nausea, vomiting ,hematemesis,hematochezia,fever ,melena nor shortness of breath..Few days prior to consult yellowing of sclera and skin prompted consult.Laboratory results revealed hyperbilirubinemia [place] bilirubin 8.3,AST 138,ALT 72,alkaline phosphatase 267,PT 16.2,INR 1.21,hemoglobin 13.2,WBC 10.7. Lipase 1221 CT scan abdomen 1. Remonstrated acute pancreatitis with peripancreatic fluid and infiltration. No definite pancreatic destruction to suggest necrosis. No armani pancreatic pseudocyst or phlegmon. 2. Thickening of the gastric antrum, duodenum as well as the distal transverse and left colon, likely reactive changes. 3. Unchanged mild ascites. 4. Enlarged fatty liver. 5. Otherwise no change. Constitutional: no complaints Eyes: no complaints, other (icteric) ENT: no complaints, other Respiratory: no complaints Gastrointestinal: decreased appetite, pain Genitourinary: no complaints Musculoskeletal: no complaints Skin: no complaints Neurologic: no complaints Endocrine: no complaints Lymphatic: no complaints Exam/Review of Systems Vital Signs Vitals Vital Signs Date Time Temp Pulse Resp B/P Pulse Ox O2 Delivery O2 Flow Rate FiO2 12/31/16 05:38 99.3 90 18 153/82 96 Room Air 12/31/16 04:30 2.0 12/31/16 03:00 28 Intake and Output 12/30/16 12/30/16 12/31/16 15:00 23:00 07:00 Intake Total 2630 ml Output Total 4000 ml Balance 2630 ml -4000 ml Exam Constitutional: alert, oriented Psych: no complaints Head: atraumatic, normocephalic Eyes: EOMI, PERRL, icteric, nl conjunctiva, nl lids ENMT: nl external ears & nose, nl lips & teeth, nl nasal mucosa & septum Neck: non-tender, supple Respiratory: clear to auscultation, normal air movement Cardiovascular: nl pulses, regular rate and rhythm Gastrointestinal: nl liver, spleen, non-tender, soft Musculoskeletal: nl extremities to inspection, nl gait and stance Extremities: normal pulses Neurological: [employer] II-XII intact, nl mental status, nl speech, nl strength Skin: nl turgor, No rash or lesions Lymph: nl lymph nodes Results Result Diagram: 12/31/16 0601 12/31/16 0601 Results 24 hrs Laboratory Tests Test 12/30/16 19:51 12/30/16 19:57 12/30/16 23:18 12/31/16 02:00 Urine Color COLE Urine Clarity CLEAR Urine pH 7.0 Urine Specific [place] 1.022 Urine Ketones NEGATIVE Urine Nitrite NEGATIVE Urine Bilirubin 2+ H Urine Urobilinogen 2+ H Urine Leukocyte Esterase NEGATIVE Urine Hemoglobin NEGATIVE Urine Glucose 3+ H Urine Total Protein NEGATIVE White Blood Count 10.7 Red Blood Count 3.63 L Hemoglobin 13.1 L Hematocrit 35.4 L Mean Corpuscular Volume 97.5 Mean Corpuscular Hemoglobin 36.1 H Mean Corpuscular Hemoglobin Concent 37.0 Red Cell Distribution Width 12.7 Platelet Count 75 L Mean Platelet Volume 11.4 H Neutrophils % Segmented Neutrophils % (Manual) 72 Band Neutrophils % (Manual) 1 Lymphocytes % Lymphocytes % (Manual) 8 L Monocytes % Monocytes % (Manual) 18 H Eosinophils % Eosinophils % (Manual) 1.0 Basophils % Nucleated Red Blood Cells % 0.0 Neutrophils # 7.7 H Neutrophils # (Manual) 7.7 H Band Neutrophils # 0.1 Absolute Lymphocytes (Manual) 0.8 Lymphocytes # 0.9 Monocytes # 1.9 H Absolute Monocytes (Manual) 1.9 H Eosinophils # 0.1 Basophils # Nucleated Red Blood Cells # Prothrombin Time 16.2 H Prothrombin Time Ratio 1.3 INR International Normalized Ratio 1.29 Activated Partial Thromboplast Time 35.1 H Sodium Level 132 L Potassium Level 3.5 Chloride Level 91 L Carbon Dioxide Level 28 Anion Gap 17 H Blood Urea Nitrogen 8 Creatinine 0.59 L Glucose Level 271 H Lactic Acid Level 1.2 1.0 0.9 Calcium Level 8.2 L Total Bilirubin 9.9 H Direct Bilirubin 7.80 H Indirect Bilirubin 2.1 H Aspartate Amino Transf (AST/SGOT) 152 H Alanine Aminotransferase (ALT/SGPT) 80 H Alkaline Phosphatase 314 H Troponin I < 0.012 Total Protein 6.7 Albumin 3.2 L Globulin 3.50 H Albumin/Globulin Ratio 0.91 Lipase 1221 H Hepatitis B Surface Antigen NEGATIVE Hepatitis B Core Total Antibody NEGATIVE Hepatitis C Antibody NEGATIVE Ethyl Alcohol Level < 10.0 Test 12/31/16 02:09 12/31/16 05:55 12/31/16 06:01 Bedside Glucose 182 163 White Blood Count 9.2 Red Blood Count 3.65 L Hemoglobin 12.7 L Hematocrit 36.6 L Mean Corpuscular Volume 100.3 Mean Corpuscular Hemoglobin 34.8 H Mean Corpuscular Hemoglobin Concent 34.7 Red Cell Distribution Width 13.1 Platelet Count 74 L Mean Platelet Volume 11.2 H Neutrophils % 53.4 Lymphocytes % 12.3 L Monocytes % 30.3 H Eosinophils % 2.2 Basophils % 0.4 Nucleated Red Blood Cells % 0.0 Neutrophils # 4.9 Lymphocytes # 1.1 Monocytes # 2.8 H Eosinophils # 0.2 Basophils # 0.0 Nucleated Red Blood Cells # 0.0 Sodium Level 138 Potassium Level 3.3 L Chloride Level 96 L Carbon Dioxide Level 29 Anion Gap 16 Blood Urea Nitrogen 5 L Creatinine 0.55 L Glucose Level 155 # Hemoglobin A1c 10.0 H Calcium Level 7.6 L Magnesium Level 1.8 Total Bilirubin 8.3 H Direct Bilirubin 6.50 H Indirect Bilirubin 1.8 H Aspartate Amino Transf (AST/SGOT) 138 H Alanine Aminotransferase (ALT/SGPT) 72 H Alkaline Phosphatase 267 H Total Protein 6.4 Albumin 2.7 L Globulin 3.70 H Albumin/Globulin Ratio 0.72 Triglycerides Level 231 H Cholesterol Level 140 LDL Cholesterol, Calculated 81 HDL Cholesterol 13 L Cholesterol/HDL Ratio 10.7 Thyroid Stimulating Hormone (TSH) 1.110 Medications Medications Current Medications Sodium Chloride (NS) 1,000 ml @ 150 mls/hr Q6H40M IV Last administered on 12/31 05:58; Admin Dose 150 MLS/HR; Start 12/30/16 at 22:54 Ondansetron HCl (Zofran Inj) 4 mg Q6H PRN IV NAUSEA AND/OR VOMITING; Start 03/08 at 23:00 Morphine Sulfate (morphine) 2 mg Q4H PRN IV SEVERE PAIN LEVEL 7-10; Start 12/30 at 23:00 Lorazepam (Ativan) 1 mg Q2 PRN IV AGITATION/ANXIETY; Start 12/30/16 at 23:00 Chlordiazepoxide (Librium) 50 mg TID PO Last administered on 12/31/16 00:52; Admin Dose 50 MG; Start 12/30/16 at 23:00; Stop 12/31/16 at 22:59 Chlordiazepoxide (Librium) 25 mg QID PO ; Start 01/01/17 at 09:00; Stop at 22:59 Chlordiazepoxide (Librium) 25 mg TID PO ; Start 01/02/17 at 09:00; Stop at 22:59 Diagnostic Test (Pha) (Accu-Chek) 1 ea 02 XX ; Start 12/31/16 at 02:00 Insulin Aspart (Novolog Insulin Pen) NOVOLOG *MILD* ALGORI... Q4 SC Last administered on 12/31/16 06:00; Admin Dose 1 UNIT; Start 12/31/16 at 01:00 Miscellaneous Information 1 ea NOTE XX ; Start 12/31/16 at 01:00 Glucose (Glutose) 15 gm Q15M PRN PO DECREASED GLUCOSE; Start 12/31/16 at 01:00 Glucose (Glutose) 22.5 gm Q15M PRN PO DECREASED GLUCOSE; Start 12/31/16 at 01: 00 Dextrose (D50w Syringe) 25 ml Q15M PRN IV DECREASED GLUCOSE; Start 12/31/16 at 01:00 Dextrose (D50w Syringe) 50 ml Q15M PRN IV DECREASED GLUCOSE; Start 12/31/16 at 01:00 Glucagon (Glucagen) 1 mg Q15M PRN IM DECREASED GLUCOSE; Start 12/31/16 at 01:00 Glucose 15 gm 15 gm Q15M PRN BUCCAL DECREASED GLUCOSE; Start 12/31/16 at 01:00 Piperacillin Sod/ Tazobactam Sod (Zosyn 3.375gm/ 100 ml (Pmx)) 100 ml @ 200 mls /hr Q6 IVPB Last administered on 12/31/16t 06:03; Admin Dose 200 MLS/HR; Start 12/31/16 at 06:00 Famotidine (Pepcid Iv) 20 mg BID IV ; Start 01/01/17 at 09:00 SHAI PAREDES NP Dec 31, 2016 10:50
[2016-12-31 12:57] LABS: ALBUMIN 2.9 g/dl (3.3-4.9); ALBUMIN/GLOBULIN RATIO 0.74; BILIRUBIN,DIRECT 6.6 mg/dl (0.00-0.20); BILIRUBIN,INDIRECT 1.9 mg/dl (0-1.1); BILIRUBIN,TOTAL 8.5 mg/dl (0.2-1.3); CALCIUM 7.7 mg/dl (8.4-10.2); CREATININE 0.61 mg/dl (0.61-1.24); TOTAL PROTEIN 6.8 g/dl (6.1-8.1)
[2016-12-31 13:14] LABS: POTASSIUM 2.9 mmol/L (3.5-5.1)
[2016-12-31 15:43] VITALS: BP 127/79; PULSE 99; RESP 20
[2016-12-31] MEDS ORDERED: POTASSIUM CHLORIDE 250 ML IVPB ONE (17:00)
[2016-12-31 17:09] VITALS: BP 131/74; RESP 18
--- NOTE | 2016-12-31 19:11 | RADRPT ---
PROCEDURE: MRCP. CLINICAL INDICATION: Hyperbilirubinemia and transaminitis. TECHNIQUE: MRCP was performed on a high field MRI scanner. Patient was examined without contrast. 3-D coronal rotating MIP images of the biliary tree are available for review. COMPARISON: CT abdomen/pelvis 12/31/2016. FINDINGS: The liver is enlarged measuring approximately 20.0 cm in a craniocaudal dimension. The liver and sp warner are homogeneous in signal intensity. The spleen is not enlarged. Mild pancreatic edema is obs erved. Marked peripancreatic edema and fluid are present. There is no evidence of organized fluid collection at this time. The pancreatic duct is normal in caliber. There is no intrahepatic or ext rahepatic biliary duct dilatation. The common bile duct measures approximately 4 mm in greatest pamela meter. The gallbladder is mildly distended with mild concentric gallbladder wall edema. There are no discrete internal signal voids to suggest the presence of cholelithiasis. There is no pericholec ystic fluid. The adrenal glands are normal. The kidneys are symmetric in size and signal intensity. There is no hydronephrosis or perinephric e marcia. The abdominal aorta is normal in caliber. There is no periaortic / retroperitoneal lymphadenopathy. The stomach is collapsed. The visualized portions of the small and large intestines are unremarkabl e. Limited imaging of the lower thorax is unremarkable. There are no bone marrow signal abnormalities. Body wall soft tissues are unremarkable. IMPRESSION: Acute pancreatitis, grossly unchanged. No evidence of organized fluid collection/pseudocyst at this time. Hepatomegaly. No evidence of cholelithiasis or biliary tract obstruction. RPTAT: [facility]ST .Chela Lamb MD, Date Time Electronically viewed and signed by .Chela Lamb MD, MD on 12/31/2016 19:10 .T/
[2016-12-31 21:31] VITALS: BP 126/72; RESP 18
[2017-01-01] MEDS: LACTATED RINGER'S 1,000 ML IV SCH ×5 (00:28→22:22)
[2017-01-01] MEDS: INSULIN ASPART [NOVOLOG] 3 ML PEN SC SCH ×5 (00:35→17:28)
[2017-01-01] MEDS: ACCU-CHEK XX SCH (02:00)
[2017-01-01 04:04] VITALS: BP 136/84; RESP 18
[2017-01-01] MEDS: PIPER-TAZO 3.375 GM IV (PMX) 100 ML IVPB SCH (05:34)
[2017-01-01 05:53] LABS: ABNORMAL IP MESSAGE 1; HEMATOCRIT 36.7 % (42.0-52.0); HEMOGLOBIN 13.2 g/dl (14.0-18.0); MEAN CORPUSCULAR HEMOGLOBIN 35.9 pg (29.0-33.0); MEAN CORPUSCULAR VOLUME 99.7 fl (82.0-101.0); MEAN PLATELET VOLUME 11.2 fl (7.4-10.4); PLATELET COUNT 96 10^3/UL (140-415); RED BLOOD COUNT 3.68 10^6/ul (4.70-6.10); RED CELL DISTRIBUTION WIDTH 13.2 % (11.5-14.5); WHITE BLOOD COUNT 8.2 10^3/ul (4.8-10.8)
[2017-01-01 06:26] LABS: ALBUMIN 2.8 g/dl (3.3-4.9); ALBUMIN/GLOBULIN RATIO 0.75; BILIRUBIN,DIRECT 4.7 mg/dl (0.00-0.20); BILIRUBIN,INDIRECT 1.9 mg/dl (0-1.1); BILIRUBIN,TOTAL 6.6 mg/dl (0.2-1.3); CALCIUM 8.5 mg/dl (8.4-10.2); CREATININE 0.52 mg/dl (0.61-1.24); POTASSIUM 3.4 mmol/L (3.5-5.1); TOTAL PROTEIN 6.5 g/dl (6.1-8.1)
[2017-01-01 08:18] VITALS: BP 132/84; RESP 20
[2017-01-01] MEDS: INSULIN GLARGINE [LANtus] 3 ML PEN SC SCH (08:29)
[2017-01-01] MEDS: FAMOTIDINE 20 MG INJ IV SCH ×2 (08:36→20:22)
[2017-01-01] MEDS ORDERED: CHLORDIAZEPOXIDE 25 MG CAP PO SCH (09:00)
[2017-01-01] MEDS ORDERED: POTASSIUM CHLORIDE (SR) 20 MEQ TAB PO STA (09:16)
--- NOTE | 2017-01-01 09:45 | PN ---
Date/Time of Note Date/Time of Note DATE: 01/01/17 TIME: 09:37 Assessment/Plan VTE Prophylaxis VTE Prophylaxis Intervention: SCD's Lines/Catheters IV Catheter Type (from [facility], [place]): Peripheral IV Assessment/Plan Assessment/Plan Assessment * Jaundice Alcoholic Hepatitis * Alcoholism * Elevated lipase Acute Pancreatitis MRCP Acute pancreatitis, grossly unchanged. No evidence of organized fluid collection/pseudocyst at this time. Hepatomegaly. No evidence of cholelithiasis or biliary tract obstruction. Plan * Continue present management * clear liquids * Will await hepatitis profile result * Alcohol cessation is paramount * Case discussed with DR Mckeon * further orders will depend on clinical course Subjective 24 Hr Interval Summary Free Text/Dictation * Course reviewed with RN * Patient seen and examined * total bilirubin trending down * No untoward events overnight * MRCP Acute pancreatitis, grossly unchanged. No evidence of organized fluid collection/pseudocyst at this time. Hepatomegaly. No evidence of cholelithiasis or biliary tract obstruction. Exam/Review of Systems Vital Signs Vitals Vital Signs Date Time Temp Pulse Resp B/P Pulse Ox O2 Delivery O2 Flow Rate FiO2 01/01/17 08:18 98.8 93 20 132/84 99 12/31/16 15:43 Room Air 12/31/16 04:30 2.0 12/31/16 03:00 28 Intake and Output 12/31/16 12/31/16 01/01/17 15:00 23:00 07:00 Intake Total 450 ml 1980 ml Balance 450 ml 1980 ml Exam Constitutional: alert, frail Eyes: icteric Neck: non-tender, supple Respiratory: clear to auscultation, normal air movement Cardiovascular: nl pulses, regular rate and rhythm Gastrointestinal: non-tender, soft, No rebound or guarding Musculoskeletal: nl extremities to inspection, nl gait and stance Extremities: normal pulses Neurological: nl speech, nl strength Skin: nl turgor, No rash or lesions Lymph: nl lymph nodes Results Result Diagram: 01/01/17 0435 01/01/17 0435 Results 24 hrs Laboratory Tests Test 12/31/16 11:46 12/31/16 11:50 12/31/16 21:05 01/01/17 00:32 Bedside Glucose 130 221 H 169 Sodium Level 137 Potassium Level 2.9 *L Chloride Level 95 L Carbon Dioxide Level 30 Anion Gap 15 Blood Urea Nitrogen 5 L Creatinine 0.61 Glucose Level 157 Calcium Level 7.7 L Total Bilirubin 8.5 H Direct Bilirubin 6.60 H Indirect Bilirubin 1.9 H Aspartate Amino Transf (AST/SGOT) 145 H Alanine Aminotransferase (ALT/SGPT) 78 H Alkaline Phosphatase 274 H Total Protein 6.8 Albumin 2.9 L Globulin 3.90 H Albumin/Globulin Ratio 0.74 Test 01/01/17 04:35 01/01/17 05:33 01/01/17 08:25 White Blood Count 8.2 Red Blood Count 3.68 L Hemoglobin 13.2 L Hematocrit 36.7 L Mean Corpuscular Volume 99.7 Mean Corpuscular Hemoglobin 35.9 H Mean Corpuscular Hemoglobin Concent 36.0 Red Cell Distribution Width 13.2 Platelet Count 96 #L Mean Platelet Volume 11.2 H Neutrophils % Lymphocytes % Monocytes % Eosinophils % Basophils % Nucleated Red Blood Cells % 0.0 Neutrophils # Lymphocytes # Monocytes # Eosinophils # Basophils # Nucleated Red Blood Cells # Sodium Level 137 Potassium Level 3.4 L Chloride Level 96 L Carbon Dioxide Level 27 Anion Gap 17 H Blood Urea Nitrogen 5 L Creatinine 0.52 L Glucose Level 135 Calcium Level 8.5 Total Bilirubin 6.6 H Direct Bilirubin 4.70 #H Indirect Bilirubin 1.9 H Aspartate Amino Transf (AST/SGOT) 138 H Alanine Aminotransferase (ALT/SGPT) 77 H Alkaline Phosphatase 267 H Total Protein 6.5 Albumin 2.8 L Globulin 3.70 H Albumin/Globulin Ratio 0.75 Lipase 603 H Bedside Glucose 138 145 Medications Medications Current Medications Ondansetron HCl (Zofran Inj) 4 mg Q6H PRN IV NAUSEA AND/OR VOMITING; Start 03/08 at 23:00 Lorazepam (Ativan) 1 mg Q2 PRN IV AGITATION/ANXIETY; Start 12/30/16 at 23:00 Diagnostic Test (Pha) (Accu-Chek) 1 ea 02 XX ; Start 12/31/16 at 02:00 Insulin Aspart (Novolog Insulin Pen) NOVOLOG *MILD* ALGORI... Q4 SC Last administered on 01/01/17t 08:33; Admin Dose 1 UNIT; Start 12/31/16 at 01:00 Miscellaneous Information 1 ea NOTE XX ; Start 12/31/16 at 01:00 Glucose (Glutose) 15 gm Q15M PRN PO DECREASED GLUCOSE; Start 12/31/16 at 01:00 Glucose (Glutose) 22.5 gm Q15M PRN PO DECREASED GLUCOSE; Start 12/31/16 at 01: 00 Dextrose (D50w Syringe) 25 ml Q15M PRN IV DECREASED GLUCOSE; Start 12/31/16 at 01:00 Dextrose (D50w Syringe) 50 ml Q15M PRN IV DECREASED GLUCOSE; Start 12/31/16 at 01:00 Glucagon (Glucagen) 1 mg Q15M PRN IM DECREASED GLUCOSE; Start 12/31/16 at 01:00 Glucose (Glutose) 15 gm Q15M PRN BUCCAL DECREASED GLUCOSE; Start 12/31/16 at 01 :00 Famotidine (Pepcid Iv) 20 mg BID IV Last administered on 01/01/17 08:36; Admin Dose 20 MG; Start 01/01/17 at 09:00 Insulin Glargine 11 unit 11 unit DAILY@08 SC Last administered on 01/01/17 08: 29; Admin Dose 11 UNIT; Start 01/01/17 at 08:00 Lactated Ringer's (Lr) 1,000 ml @ 150 mls/hr Q6H40M IV Last administered on 08:37; Admin Dose 150 MLS/HR; Start 12/31/16 at 17:30 Thiamine HCl (Vitamin B1) 100 mg BID PO ; Start 01/01/17 at 09:30 Folic Acid (Folic Acid) 1 mg DAILY PO ; Start 01/01/17 at 09:30 SHAI PAREDES NP Jan 01, 2017 09:45
[2017-01-01] MEDS: FOLIC ACID 1 MG TAB PO SCH (10:31)
[2017-01-01] MEDS: THIAMINE 100 MG TAB PO SCH ×2 (10:31→20:22)
[2017-01-01 11:23] LABS: ANISOCYTOSIS 1+ (0-0); BASOPHILS % (M) 1 % (0-2); EOSINOPHILS % (M) 5 % (0-7); GIANT THROMBO% (M) 3 % (0-0); METAMYELOCYTES %M 2 % (0-0); MONOCYTES % (M) 34 % (0-11); MYELOCYTES % (M) 1 % (0.0-0.0); PLATELET ESTIMATE DECREASED; POLYCHROMASIA 2+ (0-0); TARGET CELLS 1+ (0-0)
[2017-01-01 14:55] VITALS: BP 139/82; RESP 22
[2017-01-01] MEDS ORDERED: morphine 2 MG INJ IV PRN (17:30)
--- NOTE | 2017-01-01 18:40 | PN ---
Date/Time of Note Date/Time of Note DATE: 01/01/17 TIME: 18:38 Assessment/Plan VTE Prophylaxis VTE Prophylaxis Intervention: LMWH Lines/Catheters IV Catheter Type (from Nrs): Peripheral IV Assessment/Plan Chief Complaint/Hosp Course 46 yo male with etoh use disorder who presents with hepatitis and pancreatitis Alcoholic hepatitis and pancreatitis - Almost certainly alcohol induced by history - Continue aggressive hydration for pancreatitis - Viral serologies negative - DF is 26, does not meet criteria for steroids Fever I suspect is 2/2 inflammation rather than bacterial infection - Dc abx Thrombocytopenia I suspect is 2/2 alcohol BM suppression, no evidence of cirrhosis/splenomegaly/portal hypertension on imaging DMII: - As evidenced by A1C 10 - Continue basal/bolus insulin Hypokalemia: - Replete as needed Etoh use disorder: - Cessation counseled/advised - Monitor for s/s of withdrawal. Benzos PRN Discharge to self care when stable Problems: Subjective 24 Hr Interval Summary Free Text/Dictation Stable symptoms, mild pain Clear mentation Again advised etoh cessation Tolerating clear PO Exam/Review of Systems Vital Signs Vitals Vital Signs Date Time Temp Pulse Resp B/P Pulse Ox O2 Delivery O2 Flow Rate FiO2 01/01/17 14:55 98.5 87 22 139/82 95 12/31/16 15:43 Room Air 12/31/16 04:30 2.0 12/31/16 03:00 28 Intake and Output 12/31/16 12/31/16 01/01/17 15:00 23:00 07:00 Intake Total 450 ml 1980 ml Balance 450 ml 1980 ml Exam Jaundiced AO, no signs of HE Mild abomidnal pain to palpation No ascites No edema Labs reviewed MRCP showing pancreatitis, no stones Results Result Diagram: 01/01/17 0435 01/01/17 0435 Results 24 hrs Laboratory Tests Test 12/31/16 21:05 01/01/17 00:32 01/01/17 04:35 01/01/17 05:33 Bedside Glucose 221 H 169 138 White Blood Count 8.2 Red Blood Count 3.68 L Hemoglobin 13.2 L Hematocrit 36.7 L Mean Corpuscular Volume 99.7 Mean Corpuscular Hemoglobin 35.9 H Mean Corpuscular Hemoglobin Concent 36.0 Red Cell Distribution Width 13.2 Platelet Count 96 #L Mean Platelet Volume 11.2 H Neutrophils % Segmented Neutrophils % (Manual) 44 Band Neutrophils % (Manual) 5 H Lymphocytes % Lymphocytes % (Manual) 9 L Monocytes % Monocytes % (Manual) 34 H Eosinophils % Eosinophils % (Manual) 5 Basophils % Basophils % (Manual) 1 Metamyelocytes % (manual) 2 H Myelocytes % (Manual) 1 H Nucleated Red Blood Cells % 0.0 Neutrophils # Neutrophils # (Manual) 3.6 Band Neutrophils # 0.4 Absolute Lymphocytes (Manual) 0.7 L Lymphocytes # Monocytes # Absolute Monocytes (Manual) 2.7 H Eosinophils # Basophils # Basophils # (Manual) 0.0 Metamyelocytes # 0.1 H Myelocytes # 0.0 Nucleated Red Blood Cells # Thrombocytosis 3 H Platelet Estimate DECREASED Polychromasia 2+ Anisocytosis 1+ Target Cells 1+ Sodium Level 137 Potassium Level 3.4 L Chloride Level 96 L Carbon Dioxide Level 27 Anion Gap 17 H Blood Urea Nitrogen 5 L Creatinine 0.52 L Glucose Level 135 Calcium Level 8.5 Total Bilirubin 6.6 H Direct Bilirubin 4.70 #H Indirect Bilirubin 1.9 H Aspartate Amino Transf (AST/SGOT) 138 H Alanine Aminotransferase (ALT/SGPT) 77 H Alkaline Phosphatase 267 H Total Protein 6.5 Albumin 2.8 L Globulin 3.70 H Albumin/Globulin Ratio 0.75 Lipase 603 H Test 01/01/17 08:25 01/01/17 12:16 01/01/17 17:21 Bedside Glucose 145 172 162 Medications Medications Current Medications Ondansetron HCl (Zofran Inj) 4 mg Q6H PRN IV NAUSEA AND/OR VOMITING; Start 03/08 at 23:00 Lorazepam (Ativan) 1 mg Q2 PRN IV AGITATION/ANXIETY; Start 12/30/16 at 23:00 Diagnostic Test (Pha) (Accu-Chek) 1 ea 02 XX ; Start 12/31/16 at 02:00 Miscellaneous Information 1 ea NOTE XX ; Start 12/31/16 at 01:00 Glucose (Glutose) 15 gm Q15M PRN PO DECREASED GLUCOSE; Start 12/31/16 at 01:00 Glucose (Glutose) 22.5 gm Q15M PRN PO DECREASED GLUCOSE; Start 12/31/16 at 01: 00 Dextrose (D50w Syringe) 25 ml Q15M PRN IV DECREASED GLUCOSE; Start 12/31/16 at 01:00 Dextrose (D50w Syringe) 50 ml Q15M PRN IV DECREASED GLUCOSE; Start 12/31/16 at 01:00 Glucagon (Glucagen) 1 mg Q15M PRN IM DECREASED GLUCOSE; Start 12/31/16 at 01:00 Glucose (Glutose) 15 gm Q15M PRN BUCCAL DECREASED GLUCOSE; Start 12/31/16 at 01 :00 Famotidine (Pepcid Iv) 20 mg BID IV Last administered on 01/01/17 08:36; Admin Dose 20 MG; Start 01/01/17 at 09:00 Insulin Glargine 11 unit 11 unit DAILY@08 SC Last administered on 01/01/17 08: 29; Admin Dose 11 UNIT; Start 01/01/17 at 08:00 Lactated Ringer's (Lr) 1,000 ml @ 150 mls/hr Q6H40M IV Last administered on 15:42; Admin Dose 150 MLS/HR; Start 12/31/16 at 17:30 Thiamine HCl (Vitamin B1) 100 mg BID PO Last administered on 01/01/17 10:31; Admin Dose 100 MG; Start 01/01/17 at 09:30 Folic Acid (Folic Acid) 1 mg DAILY PO Last administered on 01/01/17 10:31; Admin Dose 1 MG; Start 01/01/17 at 09:30 Morphine Sulfate (morphine) 2 mg Q4H PRN IV pain; Start 01/01/17 at 17:30 CHAPIS MOODY MD Jan 01, 2017 18:40
[2017-01-01] MEDS: Insulin NOVOLOG SS MILD Algorithm (SS with meals and bedtime) SC SCH (20:23)
[2017-01-01 20:43] VITALS: BP 138/81; RESP 20
[2017-01-01] MEDS ORDERED: INSULIN ASPART [NOVOLOG] 3 ML PEN SC SCH (21:00)
[2017-01-02] MEDS: ACCU-CHEK XX SCH (01:14)
[2017-01-02 02:00] VITALS: BP 133/81; RESP 18
[2017-01-02] MEDS: LACTATED RINGER'S 1,000 ML IV SCH ×2 (05:13→17:42)
[2017-01-02 05:45] LABS: ABNORMAL IP MESSAGE 1; HEMATOCRIT 39.3 % (42.0-52.0); HEMOGLOBIN 13.8 g/dl (14.0-18.0); MEAN CORPUSCULAR HGB CONC 35.1 g/dl (32.0-37.0); MEAN CORPUSCULAR VOLUME 99.7 fl (82.0-101.0); MEAN PLATELET VOLUME 10.7 fl (7.4-10.4); PLATELET COUNT 112 10^3/UL (140-415); POSITIVE DIFF @See below; RED BLOOD COUNT 3.94 10^6/ul (4.70-6.10); RED CELL DISTRIBUTION WIDTH 13.4 % (11.5-14.5); WHITE BLOOD COUNT 7.7 10^3/ul (4.8-10.8)
[2017-01-02 05:48] LABS: INR 1.14; PROTIME 14.6 Sec (12.2-14.2); PT RATIO 1.1
[2017-01-02 06:41] LABS: ALBUMIN 2.8 g/dl (3.3-4.9); ALBUMIN/GLOBULIN RATIO 0.71; BILIRUBIN,DIRECT 2.3 mg/dl (0.00-0.20); BILIRUBIN,INDIRECT 1.5 mg/dl (0-1.1); BILIRUBIN,TOTAL 3.8 mg/dl (0.2-1.3); CALCIUM 8.7 mg/dl (8.4-10.2); CREATININE 0.5 mg/dl (0.61-1.24); POTASSIUM 3.5 mmol/L (3.5-5.1); TOTAL PROTEIN 6.7 g/dl (6.1-8.1)
[2017-01-02 08:21] VITALS: BP 128/81; RESP 17
[2017-01-02] MEDS: Insulin NOVOLOG SS MILD Algorithm (SS with meals and bedtime) SC SCH ×4 (08:24→20:25)
[2017-01-02] MEDS: INSULIN GLARGINE [LANtus] 3 ML PEN SC SCH (08:25)
[2017-01-02] MEDS: FOLIC ACID 1 MG TAB PO SCH (08:25)
[2017-01-02] MEDS: THIAMINE 100 MG TAB PO SCH ×2 (08:25→20:24)
[2017-01-02] MEDS ORDERED: CHLORDIAZEPOXIDE 25 MG CAP PO SCH (09:00)
[2017-01-02 09:19] LABS: ANISOCYTOSIS 3+ (0-0); BASOPHILS % (M) 1 % (0-2); EOSINOPHILS % (M) 3 % (0-7); MONOCYTES % (M) 24 % (0-11); MYELOCYTES % (M) 2 % (0.0-0.0); PLATELET ESTIMATE NORMAL; POLYCHROMASIA 1+ (0-0)
[2017-01-02] MEDS: FAMOTIDINE 20 MG INJ IV SCH ×2 (10:10→20:25)
[2017-01-02 14:55] VITALS: BP 141/84; RESP 17
--- NOTE | 2017-01-02 16:45 | PN ---
Date/Time of Note Date/Time of Note DATE: 01/02/17 TIME: 16:43 Assessment/Plan VTE Prophylaxis VTE Prophylaxis Intervention: LMWH Lines/Catheters IV Catheter Type (from Nrs): Peripheral IV Assessment/Plan Chief Complaint/Hosp Course 46 yo male with etoh use disorder who presents with hepatitis and pancreatitis Alcoholic hepatitis and pancreatitis - Continue IV hydration w LR for pancreatitis - Both syndromes resolving nicely - Tolerating PO - Viral serologies negative - DF is 26, does not meet criteria for steroids Fever I suspect is 2/2 inflammation rather than bacterial infection - Dc abx Thrombocytopenia I suspect is 2/2 alcohol BM suppression, no evidence of cirrhosis/splenomegaly/portal hypertension on imaging DMII: - As evidenced by A1C 10 - Continue basal/bolus insulin - Will need to prescribe DM meds at discharge. PO or insulin both reasonable options Etoh use disorder: - Cessation counseled/advised - Monitor for s/s of withdrawal. Benzos PRN Discharge to self care when stable. Can probably be discharged Tuesday if stable Problems: Subjective 24 Hr Interval Summary Free Text/Dictation Feeling well Tolerating diet, wants to eat more Discussed DM with him, new diagnosis Again stressed etoh cessation Exam/Review of Systems Vital Signs Vitals Vital Signs Date Time Temp Pulse Resp B/P Pulse Ox O2 Delivery O2 Flow Rate FiO2 01/02/17 14:55 98.6 82 17 141/84 98 12/31/16 15:43 Room Air 12/31/16 04:30 2.0 12/31/16 03:00 28 Intake and Output 01/01/17 01/01/17 01/02/17 15:00 23:00 07:00 Intake Total 250 ml 3000 ml 1710 ml Balance 250 ml 3000 ml 1710 ml Exam Slightly jaundiced Alert, orietned, well appearing No signs of HE Abdomen, soft nt nd No edmema Bilirubins, lipase downtrending Results Result Diagram: 01/02/17 0437 01/02/17 0437 Results 24 hrs Laboratory Tests Test 01/01/17 17:21 01/01/17 20:20 01/02/17 01:18 01/02/17 04:37 Bedside Glucose 162 191 174 White Blood Count 7.7 Red Blood Count 3.94 L Hemoglobin 13.8 L Hematocrit 39.3 L Mean Corpuscular Volume 99.7 Mean Corpuscular Hemoglobin 35.0 H Mean Corpuscular Hemoglobin Concent 35.1 Red Cell Distribution Width 13.4 Platelet Count 112 L Mean Platelet Volume 10.7 H Neutrophils % Segmented Neutrophils % (Manual) 51 Band Neutrophils % (Manual) 5 H Lymphocytes % Lymphocytes % (Manual) 14 L Monocytes % Monocytes % (Manual) 24 H Eosinophils % Eosinophils % (Manual) 3 Basophils % Basophils % (Manual) 1 Myelocytes % (Manual) 2 H Nucleated Red Blood Cells % 0.0 Neutrophils # Neutrophils # (Manual) 4.0 Band Neutrophils # 0.3 Absolute Lymphocytes (Manual) 1.0 Lymphocytes # Monocytes # Absolute Monocytes (Manual) 1.8 H Eosinophils # Basophils # Basophils # (Manual) 0.0 Myelocytes # 0.1 H Nucleated Red Blood Cells # Platelet Estimate NORMAL Polychromasia 1+ Anisocytosis 3+ Macrocytosis 3+ Prothrombin Time 14.6 H Prothrombin Time Ratio 1.1 INR International Normalized Ratio 1.14 Sodium Level 137 Potassium Level 3.5 Chloride Level 97 Carbon Dioxide Level 27 Anion Gap 17 H Blood Urea Nitrogen 6 L Creatinine 0.50 L Glucose Level 150 Calcium Level 8.7 Total Bilirubin 3.8 #H Direct Bilirubin 2.30 #H Indirect Bilirubin 1.5 H Aspartate Amino Transf (AST/SGOT) 113 H Alanine Aminotransferase (ALT/SGPT) 76 H Alkaline Phosphatase 267 H Total Protein 6.7 Albumin 2.8 L Globulin 3.90 H Albumin/Globulin Ratio 0.71 Lipase 561 H Test 01/02/17 08:18 01/02/17 12:03 Bedside Glucose 160 167 Medications Medications Current Medications Ondansetron HCl (Zofran Inj) 4 mg Q6H PRN IV NAUSEA AND/OR VOMITING; Start 03/08 at 23:00 Lorazepam (Ativan) 1 mg Q2 PRN IV AGITATION/ANXIETY; Start 12/30/16 at 23:00 Diagnostic Test (Pha) (Accu-Chek) 1 ea 02 XX ; Start 12/31/16 at 02:00 Miscellaneous Information 1 ea NOTE XX ; Start 12/31/16 at 01:00 Glucose (Glutose) 15 gm Q15M PRN PO DECREASED GLUCOSE; Start 12/31/16 at 01:00 Glucose (Glutose) 22.5 gm Q15M PRN PO DECREASED GLUCOSE; Start 12/31/16 at 01: 00 Dextrose (D50w Syringe) 25 ml Q15M PRN IV DECREASED GLUCOSE; Start 12/31/16 at 01:00 Dextrose (D50w Syringe) 50 ml Q15M PRN IV DECREASED GLUCOSE; Start 12/31/16 at 01:00 Glucagon (Glucagen) 1 mg Q15M PRN IM DECREASED GLUCOSE; Start 12/31/16 at 01:00 Glucose (Glutose) 15 gm Q15M PRN BUCCAL DECREASED GLUCOSE; Start 12/31/16 at 01 :00 Famotidine (Pepcid Iv) 20 mg BID IV Last administered on 01/02/17 10:10; Admin Dose 20 MG; Start 01/01/17 at 09:00 Insulin Glargine 11 unit 11 unit DAILY@08 SC Last administered on 01/02/17 08: 25; Admin Dose 11 UNIT; Start 01/01/17 at 08:00 Lactated Ringer's (Lr) 1,000 ml @ 150 mls/hr Q6H40M IV Last administered on 05:13; Admin Dose 150 MLS/HR; Start 12/31/16 at 17:30 Thiamine HCl (Vitamin B1) 100 mg BID PO Last administered on 01/02/17 08:25; Admin Dose 100 MG; Start 01/01/17 at 09:30 Folic Acid (Folic Acid) 1 mg DAILY PO Last administered on 01/02/17 08:25; Admin Dose 1 MG; Start 01/01/17 at 09:30 Morphine Sulfate (morphine) 2 mg Q4H PRN IV pain Last administered on 08:25; Admin Dose 2 MG; Start 01/01/17 at 17:30 CHAPIS MOODY MD Jan 02, 2017 16:45
[2017-01-02 20:36] VITALS: BP 147/84; RESP 18
[2017-01-03] MEDS: LACTATED RINGER'S 1,000 ML IV SCH ×3 (01:12→09:03)
[2017-01-03] MEDS: ACCU-CHEK XX SCH (01:56)
[2017-01-03 03:11] VITALS: BP 129/62; RESP 18
[2017-01-03 05:57] LABS: ABNORMAL IP MESSAGE 1; HEMATOCRIT 38.2 % (42.0-52.0); HEMOGLOBIN 13.2 g/dl (14.0-18.0); MEAN CORPUSCULAR HEMOGLOBIN 34.7 pg (29.0-33.0); MEAN CORPUSCULAR HGB CONC 34.6 g/dl (32.0-37.0); MEAN CORPUSCULAR VOLUME 100.5 fl (82.0-101.0); MEAN PLATELET VOLUME 10.1 fl (7.4-10.4); POSITIVE DIFF @See below; RED CELL DISTRIBUTION WIDTH 13.6 % (11.5-14.5); WHITE BLOOD COUNT 7.6 10^3/ul (4.8-10.8)
[2017-01-03 06:14] LABS: INR 1.15; PROTIME 14.7 Sec (12.2-14.2); PT RATIO 1.1
[2017-01-03 06:16] LABS: PLATELET COUNT 137 10^3/UL (140-415)
[2017-01-03 06:25] LABS: ALBUMIN 2.8 g/dl (3.3-4.9); ALBUMIN/GLOBULIN RATIO 0.75; BILIRUBIN,DIRECT 1.7 mg/dl (0.00-0.20); BILIRUBIN,INDIRECT 1.2 mg/dl (0-1.1); BILIRUBIN,TOTAL 2.9 mg/dl (0.2-1.3); CALCIUM 8.5 mg/dl (8.4-10.2); CREATININE 0.52 mg/dl (0.61-1.24); POTASSIUM 3.4 mmol/L (3.5-5.1); TOTAL PROTEIN 6.5 g/dl (6.1-8.1)
[2017-01-03] MEDS: Insulin NOVOLOG SS MILD Algorithm (SS with meals and bedtime) SC SCH ×2 (08:15→11:30)
[2017-01-03] MEDS: INSULIN GLARGINE [LANtus] 3 ML PEN SC SCH (08:16)
[2017-01-03 09:02] VITALS: BP 116/66; RESP 20
[2017-01-03] MEDS: FOLIC ACID 1 MG TAB PO SCH (09:03)
[2017-01-03] MEDS: THIAMINE 100 MG TAB PO SCH (09:04)
[2017-01-03] MEDS: FAMOTIDINE 20 MG INJ IV SCH (09:04)
[2017-01-03 09:27] LABS: EOSINOPHILS # 0.2 10^3/ul (0.0-0.5); LYMPHOCYTES # 2.2 10^3/ul (0.8-2.9); METAMYELOCYTES %M 2 % (0-0); MONOCYTE # 0.8 10^3/ul (0.3-0.9); MONOCYTES % (M) 10 % (0-11); MYELOCYTES % (M) 2 % (0.0-0.0); NEUTROPHIL # 3.9 10^3/ul (1.6-7.5)
[2017-01-03] MEDS ORDERED: POTASSIUM CHLORIDE (SR) 20 MEQ TAB PO STA (09:31)
--- NOTE | 2017-01-03 12:17 | PDOCDIS ---
Discharge Instructions CONDITION Patient Condition: Good HOME CARE INSTRUCTIONS: Diet Instructions: Regular ACTIVITY: Activity Restrictions: No Restrictions FOLLOW UP/APPOINTMENTS Follow-up Plan F/U WITH YOUR PCP IN 1-2 WEEKS MIRLANDE DOWD Jan 03, 2017 12:17
[2017-01-03] MEDS ORDERED: METF500T4 PO (12:25)
[2017-01-03] MEDS ORDERED: SITA50TA2 PO (12:25)
[2017-01-03 14:52] VITALS: BP 119/81; RESP 20
--- NOTE | 2017-01-03 15:37 | DS ---
Date/Time of Note Date/Time of Note DATE: 01/03/17 TIME: 15:30 Discharge Summary Admission/Discharge Info Admit Date/Time Dec 30, 2016 at 20:51 Discharge Date/Time January 03, 2017 Discharge Diagnosis Alcoholic hepatitis and pancreatitis-improved - Viral serologies negative Fever I suspect is 2/2 inflammation rather than bacterial infection-resolved Thrombocytopenia I suspect is 2/2 alcohol BM suppression, no evidence of cirrhosis/splenomegaly/portal hypertension on imaging DMII: - As evidenced by A1C 10 -DC with p.o. diabetic medications as well as a glucometer Etoh use disorder: - Cessation counseled/advised Patient Condition: Good Hospital Course Patient is a 46-year-old male with no medical problems who presents with midepigastric pain. Patient was found to have alcohol-related pancreatitis and alcoholic hepatitis. Patient was kept n.p.o. and given IV fluids. Patient was found to have diabetes with A1c of 10 and was seen by a corporate travel agent who provided a glucometer. Patients LFTs and lipase trended down and ultimately tolerated a p.o. diet with no pain. Patient was febrile on admission secondary to pancreatitis but this resolved. On the day of discharge patient's vitals labs and physical exam are stable, he had no further acute complaints and questions are answered. Patient was told about the importance of alcohol cessation. Home Meds Active Scripts Sitagliptin* (Januvia*) 50 Mg Tablet, 50 MG PO DAILY, #60 TAB Prov:MIRLANDE DOWD 01/03/17 Metformin Hcl* (Metformin Hcl*) 500 Mg Tablet, 500 MG PO WITH BREAKFAST DINNE, # 60 TAB 1 Refill Prov:MIRLANDE DOWD 01/03/17 Primary Care Provider Care Physician No Primary Time spent on discharge: > 30 minutes MIRLANDE DOWD Jan 03, 2017 15:37
== END 2017-01-03 17:29 | disposition home or self-care (01) | DRG 440 ==
LOC: E/R 19:00 → MS3 20:51 → PP2 12-31 16:50
PROVIDERS: ADMIT Family Medicine; ATTEND Family Medicine
DX: K85.20 Alcohol induced acute pancreatitis without necrosis or infection (principal); D69.59 Other secondary thrombocytopenia; K70.10 Alcoholic hepatitis without ascites; E11.9 Type 2 diabetes mellitus without complications; E87.6 Hypokalemia; F10.20 Alcohol dependence, uncomplicated
CPT/HCPCS: 36415; 71010; 74176; 74177; 74181; 76705; 80053; 80061; 80306; 81003; 82103; 82390; 82962; 83036; 83605; 83690; 83735; 84443; 84484; 85025; 85610; 85730; 86704; 86709; 86803; 87040; 87086; 87340; 93005; 96361; 96365; 96366; 96367; 96372; C9113; J1815; J2270; J2543; J3370; J3480; J7030; J7120; Q9967

== ENCOUNTER → 2017-01-17 | Outpatient (CLI) | payer MEDICAID ==
[~2017-01-17] MED LIST: METF500T4 PO; SITA50TA2 PO
== END | disposition home or self-care (01) ==
LOC: DIB 10:50
PROVIDERS: ATTEND Emergency Medicine
DX: Z02.9 Encounter for administrative examinations, unspecified (principal)